=== PATIENT | male | born 1960 | race Caucasian/White ===

== ENCOUNTER 2016-10-07 18:19 | Emergency (ER) | payer OTHER, BC ==
[2016-10-07] MEDS ORDERED: NS 1,000 ML IV ONE (18:25)
[2016-10-07] MEDS ORDERED: HYDROmorphONE/DILAUDID 1 MG/ML SYR IVP ONE (18:25)
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
[2016-10-07 18:35] VITALS: RESP 18; TEMP 98.2
[2016-10-07 19:07] LABS: % IMMATURE GRANULYOCYTES 0.6 % (0.0-1.1); ABSOLUTE IMMATURE GRANULOCYTES 0.11 10^3/uL (0.00-0.10); ADD DIFF? NO; ADD MORPH? NO; ADD SCAN? NO; ATYPICAL LYMPHOCYTE FLAG 0 (0-99); FRAGMENT RBC FLAG 0 (0-99); HEMATOCRIT 50.7 % (40.0-51.0); LEFT SHIFT FLG 60 (0-99); LIPEMIA HEMOLYSIS FLAG 80 (0-99); MEAN CELL HEMOGLOBIN 30.2 pg (27.9-34.1); MEAN CELL HEMOGLOBIN CONCENTR. 33.5 g/dL (32.4-36.7); MEAN CELL VOLUME 90.2 fL (81.5-99.8); PLATELET CLUMPS FLAG 10 (0-99); PLATELET COUNT 241 10^3/uL (150-400); RED BLOOD CELL COUNT 5.62 10^6/uL (4.40-6.38); RED CELL DISTRIBUTION WIDTH 13.7 % (11.5-15.2)
[2016-10-07] MEDS ORDERED: LET GEL TOPICAL 1 EA SYR TP ONE (19:13)
[2016-10-07 19:38] LABS: ANION GAP 14 mEq/L (8-16); CALCIUM 10.2 mg/dL (8.5-10.4); CARBON DIOXIDE 21 mEq/l (22-31); CHLORIDE 109 mEq/L (97-110); CREATININE 1.3 mg/dL (0.7-1.3); GLOMERULAR FILTRATION RATE 57; GLUCOSE 102 mg/dL (70-100); POTASSIUM 4.8 mEq/L (3.5-5.2); SODIUM 144 mEq/L (134-144)
[2016-10-07] MEDS ORDERED: LORazepam 2 MG/ML INJ ONE (19:48)
[2016-10-07] MEDS ORDERED: HYDROCODONE/APAP 5/325 TAB ONE (19:49)
[2016-10-07] MEDS ORDERED: LORazepam 2 MG/ML INJ IVP ONE (19:51)
[2016-10-07] MEDS ORDERED: HYDROCODONE/APAP 5/325 TAB PO ONE (19:51)
[2016-10-07 20:10] VITALS: BP 119/66; PULSE 103; O2SAT 96
[2016-10-07] MEDS ORDERED: HYDROCOD/APAP 5/325 PREPACK#6 BTL TAKEHOME ONE (21:28)
== END 2016-10-07 20:35 | disposition home or self-care (01) ==
DX: S42.022A Displaced fracture of shaft of left clavicle, initial encounter for closed fracture (principal); S00.01XA Abrasion of scalp, initial encounter; E86.9 Volume depletion, unspecified; V20.4XXA Motorcycle driver injured in collision with pedestrian or animal in traffic accident, initial encounter; Y99.8 Other external cause status; Y93.55 Activity, bike riding
CPT/HCPCS: 96374; J1170; J2060